=== PATIENT | female | born 1950 | race Caucasian/White ===

== ENCOUNTER → 2024-09-13 08:37 | Outpatient (REF) | payer MEDICARE, BC, SELFPAY | LOC: HWRAD 08:37 | PROVIDERS: ATTENDING PHYSICIAN Specialist; FAMILY PHYSICIAN Physician Assistant Medical | DX: I87.2 Venous insufficiency (chronic) (peripheral) (principal); R73.01 Impaired fasting glucose; E78.2 Mixed hyperlipidemia; E66.01 Morbid (severe) obesity due to excess calories; R94.5 Abnormal results of liver function studies; R22.9 Localized swelling, mass and lump, unspecified; R22.42 Localized swelling, mass and lump, left lower limb | CPT/HCPCS: 76700; 76882; 93970 ==

== ENCOUNTER → 2025-06-26 10:59 | Outpatient (REF) | payer MEDICARE, BC, SELFPAY ==
[2025-06-26 12:58] LABS: ALT (SGPT) 19 U/L (0-35); AST (SGOT) 22 U/L (14-36); Albumin 4.2 g/dl (3.5-5.0); Alkaline Phosphatase 64 U/L (38-126); Blood Urea Nitrogen 16 mg/dl (7-17); Calcium 9.3 mg/dl (8.4-10.2); Carbon Dioxide 28 mmol/L (22-30); Chloride 100 mmol/L (98-107); Glucose 85 mg/dl (70-99); HDL Cholesterol 69 mg/dl; LDL Cholesterol, Calculated 78 mg/dl; Potassium 4.0 mmol/L (3.5-5.1); Sodium 135 mmol/L (135-145); Total Protein 7.5 g/dl (6.3-8.2); Very Low Density Lipoprotein 18 mg/dl (0-30); eGFR > 60.00
[2025-06-26 13:14] LABS: Vitamin D, 25-OH*** 51.9 ng/mL (30-80)
[2025-06-26 13:19] LABS: Glycohemoglobin (HgbA1c) 5.5 % (4.0-5.9)
== END ==
LOC: REG 10:59
PROVIDERS: ATTENDING PHYSICIAN Physician Assistant Medical
DX: Z00.00 Encounter for general adult medical examination without abnormal findings (principal); E78.2 Mixed hyperlipidemia; R73.01 Impaired fasting glucose; E03.9 Hypothyroidism, unspecified; E55.9 Vitamin D deficiency, unspecified
CPT/HCPCS: 36415; 80053; 80061; 82306; 83036; 84443